=== PATIENT | female | born 1960 | race Caucasian/White ===

== ENCOUNTER 2016-10-02 22:56 | Emergency (ER) | payer OTHER | END 2016-10-03 00:02 | disposition left against medical advice (07) | LOC: ER1 22:56 | DX: Z53.21 Procedure and treatment not carried out due to patient leaving prior to being seen by health care provider (principal) ==

== ENCOUNTER → 2016-11-11 | Outpatient (CLI) | payer OTHER | LOC: US 15:00 → KOH-I 15:20 → US 11-15 15:00 | DX: M79.662 Pain in left lower leg (principal); N83.7 Hematoma of broad ligament; M79.89 Other specified soft tissue disorders | CPT/HCPCS: 76881 ==

== ENCOUNTER → 2016-12-14 | Outpatient (CLI) | payer OTHER | LOC: KOH-I 12:40 | DX: R51 Headache (principal); J32.9 Chronic sinusitis, unspecified; J34.2 Deviated nasal septum | CPT/HCPCS: 70486 ==

== ENCOUNTER → 2020-08-05 | Outpatient (CLI) | payer OTHER ==
[~2020-08-05] MED LIST: B COMPLEX PO; CALCIUM 600 +1 EAC6 PO; FOLIC ACID PO; IBU800 MG PO; LEVOTHYROXINE100 MC2 PO; PROVENTIL HFA6.7 GM INH
== END ==
LOC: OPSV2 11:00
DX: Z01.812 Encounter for preprocedural laboratory examination (principal); L72.3 Sebaceous cyst; Z20.822 Contact with and (suspected) exposure to COVID-19

== ENCOUNTER → 2020-08-07 | Day surgery (SDC) | payer OTHER | END | disposition home or self-care (01) | LOC: OR 06:00 | PROVIDERS: Surgery | PROC: 0HB5XZZ Excision of Chest Skin, External Approach (ICD-10-PCS; 2020-08-07) | PROC: 0HBBXZZ Excision of Right Upper Arm Skin, External Approach (ICD-10-PCS; 2020-08-07) | PROC: 0HB0XZZ Excision of Scalp Skin, External Approach (ICD-10-PCS; principal; 2020-08-07 07:30) | DX: L72.3 Sebaceous cyst (principal); K21.9 Gastro-esophageal reflux disease without esophagitis; E03.9 Hypothyroidism, unspecified; G43.909 Migraine, unspecified, not intractable, without status migrainosus; G47.33 Obstructive sleep apnea (adult) (pediatric); F17.210 Nicotine dependence, cigarettes, uncomplicated; I34.1 Nonrheumatic mitral (valve) prolapse; J44.9 Chronic obstructive pulmonary disease, unspecified; H81.09 Meniere's disease, unspecified ear; Z79.899 Other long term (current) drug therapy; Z20.822 Contact with and (suspected) exposure to COVID-19 | CPT/HCPCS: J0690; J1100; J1170; J2001; J2250; J2405; J2704; J2765; J3010; J7030; J7120 ==

== ENCOUNTER 2022-01-12 23:08 | Emergency (ER) | payer SELFPAY ==
[2022-01-13 07:03] LABS: HEMOGLOBIN 15.4 gm/dl (12.3-15.3); RED BLOOD COUNT 5.03 M/UL (4.00-5.10)
[2022-01-13 07:05] LABS: BUN/CREATININE RATIO 13 (0-10)
== END 2022-01-13 04:38 | disposition home or self-care (01) ==
LOC: ER1 23:08
DX: M54.41 Lumbago with sciatica, right side (principal); E03.9 Hypothyroidism, unspecified; F17.210 Nicotine dependence, cigarettes, uncomplicated; Z90.49 Acquired absence of other specified parts of digestive tract
CPT/HCPCS: 72072; 72100; 80053; 81001; 85025; 99283; J1885